=== PATIENT | female | born 1980 | race Caucasian/White ===

== ENCOUNTER 2018-08-31 05:39 | Day surgery (SDC) | payer OTHER ==
[2018-08-31] MEDS ORDERED: Famotidine IV* 10 MG/ML 2 ML (20 mg) IV ONE (06:00)
[2018-08-31] MEDS ORDERED: Lactated Ringers 1000 ML Bag* 1,000 ML IV SCH (06:00)
[2018-08-31] MEDS ORDERED: Dexamethasone IV* 4 MG/ML 1 ML (4 MG) IV SLOW PU ONE (06:00)
[2018-08-31] MEDS ORDERED: ceFAZolin 2 GM in NS PREMIX(*) 2 GM/100 ML BAG IVPB ONE (06:12)
[2018-08-31] MEDS ORDERED: Famotidine IV* 10 MG/ML 2 ML (20 mg) ONE (06:12)
[2018-08-31] MEDS ORDERED: Dexamethasone IV* 4 MG/ML 1 ML (4 MG) ONE (06:12)
[2018-08-31] MEDS: Buffered Lidocaine 1% SYRIN* 1 ML/SYRINGE INTRADERM ONE ×2 (06:20→06:41)
[2018-08-31] MEDS ORDERED: Lidocaine 1% INJ* 10 MG/ML 30 ML SDV ONE (06:42)
[2018-08-31] MEDS ORDERED: Bupivacaine 0.5%* 50 ML VIAL ONE (06:42)
[2018-08-31] MEDS ORDERED: Midazolam* 1 MG/ML 5 ML VIAL (5 MG) ONE (07:20)
[2018-08-31] MEDS ORDERED: Scopolamine 1.5 mg* PATCH TRANSDERM PRN (08:04)
[2018-08-31] MEDS ORDERED: Naloxone* 0.4 MG/ML 1 ML VIAL IV PRN (08:04)
[2018-08-31] MEDS ORDERED: Ondansetron INJ* 2 MG/ML VIAL IV PRN (08:04)
[2018-08-31] MEDS ORDERED: oxyCODONE/Acetamin 5/325 MG* TAB PO PRN (08:04)
[2018-08-31] MEDS ORDERED: DiMENhydriNATE IV* 50 MG/ML VIAL IV PUSH PRN (08:04)
[2018-08-31] MEDS ORDERED: Ibuprofen TAB* 400 MG ONE (08:55)
[2018-08-31 09:26] VITALS: BP 108/73
--- NOTE | 2018-08-31 09:43 | OP ---
DATE OF OPERATION: 08/31/18 - [facility] DATE OF : 84 SERVICE: General surgery. ATTENDING SURGEON: Chari Gan MD. LEAD PL SQL DEVELOPER: Trice Floyd MD. ANESTHESIOLOGIST: Dr. Denny Carmona. ANESTHESIA: Local/MAC. PRE-OP DIAGNOSIS: Left breast fibroadenoma. POST-OP DIAGNOSIS: Left breast fibroadenoma. OPERATIVE PROCEDURE: Left breast lumpectomy. ESTIMATED BLOOD LOSS: Minimal, less than 10 cc. SPECIMENS: Left breast mass. INDICATIONS FOR SURGERY: Ms. Díaz is a very pleasant 38-year-old healthy female who presented with a newly palpable left breast mass that was biopsied as a fibroadenoma. However, after a short period of surveillance, the fibroadenoma grew approximately 0.5 cm, prompting the decision to perform an excisional biopsy. She understood the risks, benefits, and alternatives of the procedure and she wished to proceed. DESCRIPTION OF PROCEDURE: The patient was brought back to the operating room and placed on the operating room table in the supine position. Sequential compression devices were placed on the bilateral lower extremities for DVT prophylaxis. Antibiotic with Ancef was administered prior to the incision. The patient underwent local MAC anesthesia and her left breast was prepped and draped in normal sterile fashion. Prior to beginning the procedure, a time-out was performed verifying the patient's name, MR number, and the procedure to be performed. Prior to making the skin incision, local anesthesia was infiltrated into the skin. Next, an approximately 2 cm incision was made over the area where the palpable mass was located which was approximately 3 o'clock in the left outer mid breast. The incision was divided down through the subcutaneous tissue and the surrounding fibrous tissue around the fibroadenoma was then grasped and incised , releasing the fibroadenoma. It was circumferentially dissected out and then removed from the breast cavity. It was noted to be lobular in appearance and had very characteristic fibroadenoma appearance as well. It was taken off the table as specimen. Once it was removed, the breast cavity was examined and hemostasis was obtained and irrigation was performed. A small amount of local anesthesia was inserted into the breast cavity and the subdermal layer was closed using interrupted 3-0 Vicryl sutures. The skin was closed using 4-0 Monocryl suture. Sterile dressing was then placed. The patient was woken up from her anesthesia and she was taken to PACU in stable condition. At the end of the case, all counts were correct. I was present during the entirety of the case. [id number]/[facility] #: [id number] [facility] HOSPITALHéctor
== END 2018-08-31 09:59 | disposition home or self-care (01) ==
LOC: OR 05:39
PROVIDERS: ATTEND Surgery
DX: D24.2 Benign neoplasm of left breast (principal); R00.2 Palpitations; J45.909 Unspecified asthma, uncomplicated; M06.9 Rheumatoid arthritis, unspecified; K58.9 Irritable bowel syndrome, unspecified
CPT/HCPCS: 88307; A9270-GY; J0690; J1100; J2250

== ENCOUNTER → 2018-11-21 22:47 | Emergency (ER) | payer OTHER ==
[~2018-11-21 22:47] MED LIST: Clindamycin CAP* 150 MG PO ONE; Tetan/Diph/Pertus SYR(Tdap)* 0.5 ML SYR(BOOSTRIX) use SYR IM ONE
--- NOTE | 2018-11-21 23:33 | ED ---
Bite Injury/Animal - HPI Summary HPI Summary: The patient is a 38 year old F presenting to [facility] accompanied by her friend with a chief complaint of a cat bite on her R hand since 2139 today. She stated that she was playing with her cat when she was bitten on her R hand. She reports that her hand started bleeding and that the cat has been suffering from a disease and she wanted to get ABX. She rates the pain a 6/10 in severity and stated that there was mild swelling to the region. She denies any fever. She reported that ibuprofen is helping the pain and that nothing aggravated the symptoms. Her last Tdap was in 2011. - History of Current Complaint Chief Complaint: EDAnimalBite Stated Complaint: CAT BITE PER PT Time Seen by Provider: 11/21/18 23:14 Hx Obtained From: Patient Onset of Injury: Happened hours ago - 2139, Still Present, Worse Since - swelling Type of Bite: Pet - cat Hx of Bite: Unprovoked Has Animal Been Immunized?: Yes Severity Initially: Moderate Severity Currently: Moderate Pain Intensity: 6 Pain Scale Used: 0-10 Numeric Character: Puncture Aggravating Factor(s): Nothing Alleviating Factor(s): Other - OTC medications for pain Associated Signs And Symptoms: Positive: Swelling. Negative: Fever Animal Available for Observation: No Animal Control Notified: No - Allergies/Home Medications Allergies/Adverse Reactions: Allergies Allergy/AdvReac Type Severity Reaction Status Date / Time adhesive tape Allergy Rash Verified 11/21/18 22:49 PMH/Surg Hx/FS Hx/Imm Hx Previously Healthy: No Endocrine/Hematology History: Reports: Hx Anemia - r/t ra Denies: Hx Diabetes, Hx Thyroid Disease Cardiovascular History: Denies: Hx Hypertension, Other Cardiovascular Problems/Disorders Respiratory History: Reports: Hx Asthma - will bring inhaler Denies: Hx Chronic Obstructive Pulmonary Disease (COPD) GI History: Reports: Hx Irritable Bowel Denies: Hx Ulcer, Other GI Disorders Musculoskeletal History: Reports: Hx Arthritis - ra, Hx Tendonitis - leg , hip knee foot Sensory History: Reports: Hx Contacts or Glasses Denies: Hx Hearing Aid Opthamlomology History: Reports: Hx Contacts or Glasses Neurological History: Reports: Hx Migraine Psychiatric History: Reports: Hx Anxiety - no meds, Hx Depression - no meds - Surgical History Surgery Procedure, Year, and Place: tosis correction eye, 1990, [place]. wisdom teeth, 1998. [place] bx lump left breast Hx Anesthesia Reactions: Yes - 24 hr vomiting Infectious Disease History: No Infectious Disease History: Denies: Hx Clostridium Difficile, Hx Hepatitis, Hx Human Immunodeficiency Virus (HIV), Traveled Outside the [place] in Last 30 Days - Family History Known Family History: Positive: Other - RA - Social History Alcohol Use: None Hx Substance Use: Yes Substance Use Type: Reports: Marijuana Substance Use Comment - Amount & Last Used: occaasional in the past Hx Tobacco Use: No Smoking Status (MU): Never Smoked Tobacco Review of Systems Negative: Fever Positive: Other - swelling of the R hand, puncture wound on the R hand All Other Systems Reviewed And Are Negative: Yes Physical Exam - Summary Physical Exam Summary: VITAL SIGNS: Reviewed. GENERAL: Patient is a well-developed and nourished female who is lying comfortable in the stretcher. Patient is not in any acute respiratory distress. HEAD AND FACE: No signs of trauma. No ecchymosis, hematomas or skull depressions. No sinus tenderness. EYES: PERRLA, EOMI x 2, No injected conjunctiva, no nystagmus. EARS: Hearing grossly intact. Ear canals and tympanic membranes are within normal limits. MOUTH: Oropharynx within normal limits. NECK: Supple, trachea is midline, no adenopathy, no JVD, no carotid bruit, no c- spine tenderness, neck with full ROM CHEST: Symmetric, no tenderness at palpation LUNGS: Clear to auscultation bilaterally. No wheezing or crackles. CVS: Regular rate and rhythm, S1 and S2 present, no murmurs or gallops appreciated. ABDOMEN: Soft, non-tender. No signs of distention. No rebound no guarding, and no masses palpated. Bowel sounds are normal. EXTREMITIES: FROM in all major joints, Mild edema around the R hand, no cyanosis or clubbing. NEURO: Alert and oriented x 3. No acute neurological deficits. Speech is normal and follows commands. SKIN: Dry and warm, 4mm puncture on the dorsum of the R hand on the radial side Triage Information Reviewed: Yes Vital Signs On Initial Exam: Initial Vitals Temp Pulse Resp BP Pulse Ox 98.8 F 98 16 126/84 95 11/21/18 22:48 11/21/18 22:48 11/21/18 22:48 11/21/18 22:48 11/21/18 22:48 Vital Signs Reviewed: Yes Diagnostics - Vital Signs Vital Signs Temp Pulse Resp BP Pulse Ox 11/21/18 22:48 98.8 F 98 16 126/84 95 - Laboratory Lab Statement: Any lab studies that have been ordered have been reviewed, and results considered in the medical decision making process. Bite Injury Course/Dx - Course Course Of Treatment: The patient is a 38 year old F [facility] with a chief complaint of a cat bite since 2139 today. She stated that she was playing with a friends cat when she was bitten on her R hand. She reports that her hand started bleeding and that the cat has been suffering from a disease and she wanted to get ABX. Upon her PE she was found to have a 4mm puncture on the dorsum of the R hand on her Radial side with Mild edema around the hand. She will be discharged home with an ABX after her hand is cleaned and dressed. she was also given the following medications Boostrix Syr. 0.5 ml IM, cleocin capsule 300 mg PO. She will be d/c with a dx of a cat bite and a puncture wound. She has been instructed to follow up with [facility] and to return to the emergency department with any new or worsening symptoms. She was sent home with Clindamycin 300 mg cap. - Diagnoses Provider Diagnosis: Cat bite, Puncture wound Discharge - Sign-Out/Discharge Documenting (check all that apply): Patient Departure - discharge Patient Received Moderate/Deep Sedation with Procedure: No - Discharge Plan Condition: Stable Disposition: HOME Prescriptions: Clindamycin Cap(NF) [Clindamycin Cap 300 mg Cap(NF)] 300 mg PO Q6H #30 cap Patient Education Materials: Animal Bite (ED) Referrals: [facility] [Outside] - 2 Days Additional Instructions: Please return to the Emergency department with any new or worsening symptoms and follow up with [facility] in 2-3 days. - Billing Disposition and Condition Condition: STABLE Disposition: Home - Attestation Statements Document Initiated by Scribe: Yes Documenting Scribe: Allan St Provider For Whom Scribe is Documenting (Include Credential): Stan Perez MD Scribe Attestation: Allan Canales, scribed for Stan Perez MD on 11/22/18 at 0517. Scribe Documentation Reviewed: Yes Provider Attestation: The documentation as recorded by the scribe, Allan St accurately reflects the service I personally performed and the decisions made by me, Stan Perez MD Status of Scribe Document: Viewed
[2018-11-21 23:45] VITALS: BP 121/78
== END | disposition home or self-care (01) ==
LOC: ED 22:47
DX: S61.451A Open bite of right hand, initial encounter (principal); S61.431A Puncture wound without foreign body of right hand, initial encounter; W55.01XA Bitten by cat, initial encounter; Y92.9 Unspecified place or not applicable
CPT/HCPCS: 90471; 90715; 99282; A9270-GY